=== PATIENT | male | born 1990 | race Caucasian/White ===

== ENCOUNTER 2021-10-19 12:01 | Emergency (ER) | payer OTHER ==
[2021-10-19] MEDS ORDERED: Albuterol/Ipratropium 3.0-0.5 MG/3 ML Neb Soln NEB ONE (12:12)
[2021-10-19 12:55] LABS: BLOOD UREA NITROGEN,BUN 11 mg/dL (7.0-18.0); CARBON DIOXIDE,CO2 23.8 mmol/L (21.0-32.0); CHLORIDE,CL 104 mmol/L (98-107); GLUCOSE RANDOM 108 mg/dL (74-106); POTASSIUM,K 3.5 mmol/L (3.5-5.1); SODIUM,NA 138 mmol/L (136-148)
[2021-10-19 12:55] LABS: CORONAVIRUS COVID-19 NAA NEGATIVE (NEGATIVE); INFLUENZA A NAA NEGATIVE (NEGATIVE); INFLUENZA B NAA NEGATIVE (NEGATIVE)
[2021-10-19] MEDS ORDERED: Albuterol 8 GM Inhaler INH ONE (13:01)
== END 2021-10-19 13:40 | disposition home or self-care (01) ==
LOC: MW.ED 12:01
DX: J40 Bronchitis, not specified as acute or chronic (principal); Z79.899 Other long term (current) drug therapy; Z88.2 Allergy status to sulfonamides; Z86.16 Personal history of COVID-19; Z20.822 Contact with and (suspected) exposure to COVID-19
CPT/HCPCS: 0240U; 36415; 71046; 80053; 85025; 93005; 99284; A9270; J7620-GY